=== PATIENT | male | born 1970 | race Caucasian/White ===

== ENCOUNTER 2022-05-21 01:15 | Emergency (ER) | payer BC ==
[2022-05-21] MEDS ORDERED: Sodium Chloride 0.9% 2.5 ML Syringe FLUSH PRN (01:36)
[2022-05-21] MEDS ORDERED: Ondansetron 4 MG/2 ML SDV IVPUSH ONE (01:36)
[2022-05-21] MEDS ORDERED: fentaNYL 50 MCG/ML SDV IVPUSH ONE ×2 (01:36→02:43)
[2022-05-21] MEDS ORDERED: Sodium Chloride 0.9% 10 ML Syringe FLUSH PRN (01:36)
[2022-05-21] MEDS ORDERED: Sodium Chloride 0.9% 1,000 ML IV ONE ×2 (01:36→02:38)
[2022-05-21 02:04] LABS: CARBON DIOXIDE,CO2 28.9 mmol/L (21.0-32.0)
[2022-05-21] MEDS ORDERED: Ketorolac 30 MG/ML SDV IVPUSH ONE (02:37)
[2022-05-21] MEDS ORDERED: Tamsulosin 0.4 MG Cap.ER PO ONE (02:38)
== END 2022-05-21 03:33 | disposition home or self-care (01) ==
LOC: MW.ED 01:15
DX: N13.2 Hydronephrosis with renal and ureteral calculous obstruction (principal); Z88.0 Allergy status to penicillin
CPT/HCPCS: 36415; 74176; 80053; 81001; 83690; 85025; 96361; 96374; 96375; 96376; 99284; A9270; J1885; J2405; J3010; J7030

== ENCOUNTER 2022-05-26 10:11 | Emergency (ER) | payer BC ==
[2022-05-26] MEDS ORDERED: Acetaminophen/oxyCODONE 325-10 MG Tab PO STA (10:54)
== END 2022-05-26 11:41 | disposition home or self-care (01) ==
LOC: MW.ED 10:11
DX: N13.2 Hydronephrosis with renal and ureteral calculous obstruction (principal); I10 Essential (primary) hypertension; Z88.0 Allergy status to penicillin; Z79.899 Other long term (current) drug therapy
CPT/HCPCS: 99283; A9270